=== PATIENT | female | born 1960 | race Two or more races ===

== ENCOUNTER 2022-02-15 06:28 | Outpatient (CLI) | payer OTHER ==
[~2022-02-15 06:28] MED LIST: COZAAR100 MG PO; JARDIANCE25 MG PO; TOPROL XL25 M1 PO
[2022-02-15] MEDS ORDERED: IBU600 MG PO (15:49)
== END 2022-02-15 09:11 | disposition home or self-care (01) ==
LOC: LAB 06:28
PROVIDERS: ATTEND Internal Medicine
DX: I10 Essential (primary) hypertension (principal)

== ENCOUNTER 2022-02-15 06:30 | Day surgery (SDC) | payer OTHER ==
[~2022-02-15] VITALS: Ht 160 cm; Wt 95.3 kg
[2022-02-15] MEDS ORDERED: IBU600 MG PO (15:49)
== END 2022-02-15 20:50 | disposition home or self-care (01) ==
LOC: CIR.AMB 06:30
PROVIDERS: ATTEND Obstetrics & Gynecology Gynecology
DX: N95.0 Postmenopausal bleeding (principal); N85.00 Endometrial hyperplasia, unspecified; N84.1 Polyp of cervix uteri; N72 Inflammatory disease of cervix uteri; I10 Essential (primary) hypertension; E11.9 Type 2 diabetes mellitus without complications; Z86.16 Personal history of COVID-19

== ENCOUNTER 2024-05-10 09:42 | Outpatient (CLI) | payer OTHER ==
[~2024-05-10 09:42] MED LIST changes: +IBU600 MG PO
== END 2024-05-10 09:44 | disposition home or self-care (01) ==
LOC: NUCLEAR 09:42
PROVIDERS: ATTEND Obstetrics & Gynecology Gynecology
DX: M81.0 Age-related osteoporosis without current pathological fracture (principal)

== ENCOUNTER 2024-05-10 14:57 | Outpatient (CLI) | payer OTHER ==
[2024-05-10 08:29] LABS: PH,URINE 5.5 (5.0-8.0); URINE APPEARANCE Clear; URINE BILIRRUBIN Negative (NEGATIVE); URINE BLOOD Negative; URINE COLOR Yellow; URINE GLUCOSE Negative (NEGATIVE); URINE KETONE Negative (NEGATIVE); URINE LEUKOCYTE Trace; URINE NITRATE Negative; URINE UROBILINOGEN 0.2 E.U./dl
[2024-05-10 08:33] LABS: URINE BACTERIA 18.3 uL (0.0-1933); URINE RBC 6.3 uL (0.0-20.8)
[2024-05-10 08:47] LABS: URINE CAST 0.14 uL (0.0-1.40); URINE PROTEIN 300 (NEGATIVE)
[2024-05-10 08:50] LABS: HEMATOCRIT 38.5 % (36.0-45.00); HEMOGLOBIN 13.4 g/dL (12.0-15.00); MEAN CELL VOLUME 89.6 fL (80.00-100.00); MEAN CORPUSCULAR HEMOGLOBIN 31.3 pg (27.00-32.0); MEAN CORPUSCULAR HGB CONC 34.9 g/dl (32.0-36.0); PLATELET COUNT 192 K/uL (150-450); RED CELL DISTRIBUTION WIDTH 13.5 % (11.5-14.5)
[2024-05-10 08:58] LABS: ALBUMIN 3.3 gm/dL (3.4-5.0); BILIRUBIN TOTAL 0.81 mg/dL (0.3-1.2); CALCIUM 8.6 mg/dL (8.5-10.1); CHOL HDL RATIO 3.5 (0-5.0); CREATININE SERUM 0.46 mg/dL (0.55-1.02); GFR 137.64; POTASSIUM 4.03 mEq/L (3.5-5.1); TOTAL PROTEIN 6.3 gm/dL (6.4-8.2)
[2024-05-10 17:35] LABS: TSH 1.75 uIU/mL (0.358-3.74)
== END 2024-05-10 14:58 | disposition home or self-care (01) ==
LOC: LAB 14:57
PROVIDERS: ATTEND Obstetrics & Gynecology Gynecology
DX: D64.9 Anemia, unspecified (principal); N39.0 Urinary tract infection, site not specified; E55.9 Vitamin D deficiency, unspecified; E78.5 Hyperlipidemia, unspecified; Z12.11 Encounter for screening for malignant neoplasm of colon; E03.9 Hypothyroidism, unspecified

== ENCOUNTER 2024-05-10 15:58 | Outpatient (CLI) | payer OTHER | END 2024-05-10 16:04 | disposition home or self-care (01) | LOC: RAD 15:58 | PROVIDERS: ATTEND Obstetrics & Gynecology Gynecology | DX: R10.2 Pelvic and perineal pain (principal); R10.817 Generalized abdominal tenderness; N60.11 Diffuse cystic mastopathy of right breast; N60.12 Diffuse cystic mastopathy of left breast; Z12.31 Encounter for screening mammogram for malignant neoplasm of breast ==